=== PATIENT | male | born 1965 | race Caucasian/White ===

== ENCOUNTER 2023-02-08 15:55 | Emergency (ER) | payer BC, OTHER ==
[2023-02-08 16:05] VITALS: BP 146/91; PULSE 96; RESP 18; TEMP 98.3; BMI 28.2
[2023-02-08] MEDS ORDERED: LIDOCAINE HCL 2% JELLY 10 ML CARTRIDGE UR ONE (16:55)
[2023-02-08] MEDS ORDERED: LIDOCAINE HCL 2% JELLY 11 ML TP ONE ×2 (17:05→18:14)
[2023-02-08] MEDS ORDERED: PHENAZOPYRIDINE HCL 100 MG TABLET (FP) PO ONE (18:43)
[2023-02-08] MEDS ORDERED: PHENAZOPYRIDINE HCL 100 MG TABLET (FP) ONE (19:08)
[2023-02-08 19:39] LABS: EPI CELLS 12 /uL (0-25.1); HYALINE CASTS 0 /uL (0-3.1); URINE APPEARANCE CLEAR; URINE BACTERIA 11 /uL (0-1359); URINE BILIRUBIN NEGATIVE (NEGATIVE); URINE COLOR YELLOW; URINE GLUCOSE (UA) NEGATIVE (NEGATIVE); URINE KETONE NEGATIVE (NEGATIVE); URINE LEUK ESTERASE TRACE (NEGATIVE); URINE NITRITE NEGATIVE (NEGATIVE); URINE PROTEIN 2+ (NEGATIVE); URINE RBC 956 /uL (0-23.9); URINE UROBILINOGEN 0.2 mg/dL (0.2-1.0); URINE WBC 40 /uL (0-25.8)
== END 2023-02-08 19:20 | disposition home or self-care (01) ==
LOC: JER 15:55
DX: N13.9 Obstructive and reflux uropathy, unspecified (principal); R32 Unspecified urinary incontinence
CPT/HCPCS: 81003; 87086; 99284-25